=== PATIENT | female | born 1940 | race Caucasian/White ===

== ENCOUNTER 2017-01-21 06:48 | Emergency (ER) | payer OTHER, MEDICAID ==
[~2017-01-21 06:48] MED LIST: ADV250/50 INH; ALBUD HHN; ALBUTEROL0.63 MG/3 NEB; ASPIR 8181 MG PO; ATROVENT H0.017 MG/1 INH; ATROVENT15 ML NS; CLARITIN10 MG PO; COZAAR100 MG PO; GLU500 PO; IPRATROPIUM BR2.5 ML IH; LAC PO; LEV500 PO; LEVAQUIN LEVA-750 M1 PO; LEVAQUIN500 MG PO; MEDDP PO; MELOXICAM7.5 M1 PO; PHECLUD PO; PREDNISONE20 MG PO; PRI20 PO; PROAIR HFA0.09 MG/A1 INH; PROMETHAZINE W118 ML PO; RANITIDINE HCL150 M1 PO; SIMVASTATIN20 M1 PO; SING10 PO; SINGULAIR10 MG PO; SINGULAIR4 MG PO; SYMBICORT1 AE2 INH
[2017-01-21 07:45] VITALS: BP 107/72
== END 2017-01-21 07:45 | disposition home or self-care (01) ==
LOC: ED 06:48
DX: G44.209 Tension-type headache, unspecified, not intractable (principal); R06.02 Shortness of breath; Z88.8 Allergy status to other drugs, medicaments and biological substances; J45.909 Unspecified asthma, uncomplicated; I10 Essential (primary) hypertension; E78.00 Pure hypercholesterolemia, unspecified
CPT/HCPCS: J7512

== ENCOUNTER 2017-09-30 10:52 | Inpatient (IN) | payer OTHER ==
[~2017-09-30] VITALS: Ht 154.9 cm; Wt 78.9 kg
[2017-09-30 12:26] LABS: BASOPHIL % 0.6 % (0-2); PLATELET COUNT 295 x10^3mcL (130-400); RED CELL DISTRIBUTION WIDTH 20.1 % (11.5-14.5)
[2017-09-30 12:53] LABS: ALBUMIN 3.5 g/dL (3.4-5.0); ALKALINE PHOSPHATASE 76 U/L (46-116); ALT/SGPT 16 U/L (14-59); AST/SGOT 16 U/L (15-37); BILIRUBIN TOTAL 0.3 mg/dL (0.20-1.00); CALCIUM 8.5 mg/dL (8.5-10.1); CARBON DIOXIDE 29.8 mmol/L (21-32); CHLORIDE SERUM 108 mmol/L (98-107); CREATININE SERUM 0.8 mg/dL (0.6-1.0); FREE T4 1.01 ng/dL (0.76-1.46); GLUCOSE SERUM 164 mg/dL (74-106); POTASSIUM SERUM 3.3 mmol/L (3.5-5.1); SODIUM SERUM 145 mmol/L (136-145); TOTAL PROTEIN, SERUM 6.9 g/dL (6.4-8.2)
[2017-09-30 13:22] LABS: ERYTHROCYTE SED RATE 19 mm/hr (0-30)
[2017-09-30 13:37] LABS: UA SPECIFIC GRAVITY 1.015 (1.005-1.035); urine erythrocyte NEGATIVE (NEGATIVE)
[2017-09-30 13:52] LABS: microscopic required? YES
[2017-09-30] MEDS ORDERED: ISOSORBIDE MONO30 MG PO (17:32)
[2017-09-30 18:05] LABS: TOTAL PROTEIN CSF 42 mg/dL (15-45)
[2017-09-30 18:14] LABS: APPEARANCE CSF HAZY; COLOR CSF PINK; RBC CSF 282 /cumm (0); WBC CSF 0 /cumm (0-5)
[2017-09-30 18:17] LABS: APPEARANCE CSF CLEAR; COLOR CSF COLORLESS; RBC CSF 110 /cumm (0); WBC CSF 1 /cumm (0-5)
[2017-09-30 18:48] VITALS: BP 122/68
[2017-09-30 20:50] VITALS: BP 107/62
[2017-10-01 05:22] VITALS: BP 119/66
[2017-10-01 07:59] LABS: BASOPHIL % 0.2 % (0-2); PLATELET COUNT 259 x10^3mcL (130-400); RED CELL DISTRIBUTION WIDTH 19.1 % (11.5-14.5)
[2017-10-01 08:00] LABS: rbc morphology (normal/abnorm) ABNORMAL (NORMAL)
[2017-10-01 08:36] VITALS: BP 132/76
[2017-10-01 08:38] LABS: ALKALINE PHOSPHATASE 66 U/L (46-116); ALT/SGPT 15 U/L (14-59); AST/SGOT 16 U/L (15-37); BILIRUBIN TOTAL 0.26 mg/dL (0.20-1.00); CALCIUM 8.5 mg/dL (8.5-10.1); CARBON DIOXIDE 27.7 mmol/L (21-32); CHLORIDE SERUM 109 mmol/L (98-107); CREATININE SERUM 0.7 mg/dL (0.6-1.0); GLUCOSE SERUM 94 mg/dL (74-106); POTASSIUM SERUM 3.7 mmol/L (3.5-5.1); SODIUM SERUM 146 mmol/L (136-145); TOTAL PROTEIN, SERUM 6.2 g/dL (6.4-8.2)
[2017-10-01 08:39] LABS: ALBUMIN 3.1 g/dL (3.4-5.0)
[2017-10-01 16:26] VITALS: BP 106/59
[2017-10-01 21:19] VITALS: BP 99/52
[2017-10-02 05:50] VITALS: BP 123/79
[2017-10-02] MEDS ORDERED: MECLIZINE HYD12.5 MG PO (08:48)
[2017-10-02 09:10] VITALS: BP 123/79
[2017-10-02 09:27] VITALS: BP 122/71
== END 2017-10-02 11:12 | disposition home or self-care (01) | DRG 103 ==
LOC: ED 10:52 → MU 16:42
PROVIDERS: Emergency Medicine; Internal Medicine Pulmonary Disease
PROC: 009U3ZX Drainage of Spinal Canal, Percutaneous Approach, Diagnostic (ICD-10-PCS; principal; 2017-09-30)
DX: R51 Headache (principal); H81.10 Benign paroxysmal vertigo, unspecified ear; I10 Essential (primary) hypertension; K21.9 Gastro-esophageal reflux disease without esophagitis; E78.5 Hyperlipidemia, unspecified; B34.9 Viral infection, unspecified; J45.909 Unspecified asthma, uncomplicated; G89.29 Other chronic pain; M54.5 Low back pain
CPT/HCPCS: 82962; 84439; 97535-GP; J0696; J2001; J2270; J2550; J2765; J3010; J3490; J7620; J7626; J8597; Q0092